=== PATIENT | female | born 1995 | race Caucasian/White ===

== ENCOUNTER → 2017-03-02 | Outpatient (CLI) | payer BC ==
[~2017-03-02] MED LIST: GADAVIST IV PRN; PRLSR20 PO
--- NOTE | 2017-03-02 15:09 | DIAGNOSTIC IMAGING REPORT ---
THYROID ULTRASOUND HISTORY: Thyroid mass E04.9 Goiter Arrive at 2pm, SEND TO MRI COMPARISON: 06/01/2016 FINDINGS: Right lobe: Multinodular pattern. Dominant nodule measuring 3.1 cm in the midpole. This primarily cystic with internal complex component. It is slightly diminished in volume from the prior study. Left lobe: Maximum dimension 5.8 cm. Several low suspicion nodular densities considered stable Isthmus: No nodules. IMPRESSION: 1. 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 2. Dominant nodule of the right thyroid lobe is slightly diminished in size from the prior study with a current maximum dimension of 3.1 cm. Electronically signed by: Jimmie Berry M.D. 03/02/2017 3:07 PM Dictated Date/Time: 03/02/2017 3:05 PM
--- NOTE | 2017-03-02 15:33 | DIAGNOSTIC IMAGING REPORT ---
MRI OF THE PITUITARY GLAND WITH AND WITHOUT CONTRAST CLINICAL HISTORY: Enlarged pituitary gland. COMPARISON STUDY: Head CT March 27, 2016 and pituitary MRI April 25, 2016. TECHNIQUE: Utilizing a 1.5 Ricarda magnet and dedicated coil, multiplanar, multi echo imaging through the sella was performed pre and postcontrast administration with dynamic enhancement. Injection of 6 cc of Gadavist IV was uneventful. FINDINGS: Mild enlargement of the pituitary gland is unchanged since MRI April 25, 2016. The gland measures 1 cm in craniocaudal extent. No hypoenhancing lesion is identified to suggest a pituitary adenoma. The gland enhances uniformly. The infundibulum is midline. Optic chiasm is within normal limits. Adjacent soft tissues are unremarkable. Visualized portions of the brain parenchyma are normal. Flow-voids for the major intracranial vessels are present. Calvarial signal is unremarkable. No abnormalities of the cavernous sinus are identified. Orbits are unremarkable. IMPRESSION: No change in mild enlargement of the pituitary gland since MRI of April 25, 2016. No pituitary adenoma identified. Electronically signed by: Kirk Espinosa M.D. 03/02/2017 3:32 PM Dictated Date/Time: 03/02/2017 3:25 PM
== END | disposition home or self-care (01) ==
LOC: C.ULTR 14:18
PROVIDERS: ATTEND Internal Medicine Endocrinology, Diabetes & Metabolism
DX: E23.6 Other disorders of pituitary gland (principal); E04.2 Nontoxic multinodular goiter

== ENCOUNTER → 2017-03-21 | Outpatient (CLI) | payer BC ==
[~2017-03-21] MED LIST changes: -GADAVIST IV PRN
[2017-03-21 12:28] LABS: THYROID STIMULATING HORMONE 1.06 uIu/ml (0.300-4.500)
[2017-03-24 02:21] LABS: ILGF1 Z SCORE FEMALE 0.7 SD (-2.0 - +2.0); INSULIN LIKE GROWTH FACTOR-I 292 ng/mL (83-456)
== END | disposition home or self-care (01) ==
LOC: C.LAB1850 10:07
PROVIDERS: ATTEND Internal Medicine Endocrinology, Diabetes & Metabolism
DX: E23.6 Other disorders of pituitary gland (principal); E04.9 Nontoxic goiter, unspecified

== ENCOUNTER → 2017-05-14 | Outpatient (CLI) | payer BC ==
[2017-05-14 12:12] LABS: HEMATOCRIT 42.4 % (37-47); MEAN CELL VOLUME 93.4 fL (80-100); MEAN CORPUSCULAR HEMOGLOBIN 31.3 pg (25-34); MEAN CORPUSCULAR HGB CONC 33.5 g/dl (32-36); MEAN PLATELET VOLUME 10.2 fL (7.4-10.4); PLATELET COUNT 178 K/uL (130-400); RED BLOOD COUNT 4.54 M/uL (4.2-5.4); WHITE BLOOD COUNT 4.52 K/uL (4.8-10.8)
== END | disposition home or self-care (01) ==
LOC: C.LABBFT 09:39
PROVIDERS: ATTEND Physician Assistant Medical
DX: D50.9 Iron deficiency anemia, unspecified (principal)

== ENCOUNTER → 2018-02-04 | Outpatient (CLI) | payer BC | END | disposition home or self-care (01) | LOC: C.LABSPEC 18:20 | PROVIDERS: ATTEND Nurse Practitioner | DX: J02.9 Acute pharyngitis, unspecified (principal) ==